=== PATIENT | female | born 1980 | race Caucasian/White ===

== ENCOUNTER 2019-03-12 15:35 | Observation (INO) ==
--- NOTE | 2019-03-12 16:18 | EKG Report ---
Test Performed on : 03/12/2019 4:09:36 PM Test Reason : rectal bleed Blood Pressure : / mmHG Vent. Rate : 064 BPM Atrial Rate : 064 BPM P-R Int : 126 ms QRS Dur : 096 ms QT Int : 438 ms P-R-T Axes : 035 031 041 degrees QTc Int : 451 ms Normal sinus rhythm. Low voltage QRS Borderline ECG When compared with ECG of 03-SEP-2017 07:08, No significant change was found Confirmed by Douglas Marquez MD ([id number]) on 03/12/2019 8:59:39 PM
[2019-03-12 17:00] LABS: HEMATOCRIT 37.4 % (37.0-47.0); HEMOGLOBIN 12.2 g/dL (12.0-16.0); MCH 32.9 PG (27-31); MCHC 32.6 g/dL (33-37); MCV 100.8 FL (81-99); MPV 10.3 FL (7.4-10.4); RBC 3.71 XMIL (4.2-5.4); RDW 12.5 % (11.5-14.5); WBC 4.98 X1000 (4.8-10.8)
[2019-03-12 17:06] LABS: INR 0.9; PROTIME 12.8 Seconds (11.0-16.0); PTT 28.7 Seconds (22.3-41.8)
[2019-03-12 17:21] LABS: AGAP 13; CHLORIDE 104 mmol/L (98-107); GLUCOSE 96 mg/dL (70-104); POTASSIUM 4.1 mmol/L (3.5-5.1); SODIUM 142 mmol/L (136-145); TCO2 25 mmol/L (25-35)
[2019-03-12 17:22] LABS: ALB/GLOB RATIO 2.2; ALBUMIN 4.3 g/dL (3.5-5.0); ALKALINE PHOSPHATASE 70 U/L (32-104); BUN 12 mg/dL (8-22); CALCIUM 8.6 mg/dL (8.8-10.2); COSMO 283; CREATININE 0.9 mg/dL (0.5-0.9); ESTIMATED GFR > 60; GOT 14 U/L (10-30); GPT 10 U/L (10-36); TOTAL BILIRUBIN 0.36 mg/dL (0.20-1.00); TOTAL PROTEIN 6.3 g/dL (6.3-8.3)
[2019-03-12 17:40] LABS: URINE SOURCE CLEAN CATCH
[2019-03-12 17:42] LABS: BILIRUBIN URINE NEGATIVE (NEGATIVE); BLOOD URINE NEGATIVE (NEGATIVE); COLOR YELLOW; GLUCOSE URINE NEGATIVE (NEGATIVE); KETONE URINE NEGATIVE (NEGATIVE); LEUKOCYTES URINE NEGATIVE (NEGATIVE); NITRITE URINE NEGATIVE (NEGATIVE); PROTEIN URINE TRACE mg/dL (NEGATIVE); SP GRAVITY URINE 1.026; TURBIDITY URINE CLEAR (CLEAR); UR EPITHELIAL CELLS <10 /HPF (<10); URINE BACTERIA 1+ /HPF; URINE RBC <10 /HPF (<10); URINE WBC <10 /HPF (<10); UROBILINOGEN URINE 4 mg/dL (NORMAL)
--- NOTE | 2019-03-12 17:49 | Diag Imaging Result Doc PS360 ---
EXAM: CHEST-2 VIEWS 03/12/2019 HISTORY: rectal bleed TECHNIQUE: PA and lateral chest COMMENT: There is what appears to be a nipple shadow on the right. The heart size and pulmonary vascularity are within normal limits. The lungs are clear. There are no previous studies. IMPRESSION: No acute disease. Electronically signed by Reddy Ortiz 03/12/2019 5:46 PM
[2019-03-12] MEDS: NS 1,000 ML IV SCH (18:02)
[2019-03-12] MEDS ORDERED: REGLAN PO ONE (18:11)
[2019-03-12] MEDS ORDERED: GOLYTELY PO ONE (18:11)
--- NOTE | 2019-03-12 18:19 | Diag Imaging Result Doc PS360 ---
EXAM: CT ABD/PELVIS W/IV CONT ONLY 03/12/2019 HISTORY: rectal bleed TECHNIQUE: This exam was performed using automated exposure control, adjustment of mA or kV according to patient size, and/or use of iterative reconstruction technique. COMMENT: There are no previous studies available for comparison. There are multiple pleural-based irregularities in the lower lobes bilaterally which may be due to fibrosis. The liver, spleen, adrenal glands, and pancreas are within normal limits. There is a calcified gallstone in the gallbladder measuring 7 to 8 mm in diameter. There is no evidence of para cholecystic fluid or wall thickening. The kidneys are without evidence of hydronephrosis or mass. There is a fairly large amount of stool present in the colon. There are some prominent mesenteric nodes. There is no evidence of small bowel obstruction. The aorta is not distended. Pelvis: The appendix is normal in appearance. There is some fluid throughout the small bowel. There is a left ovarian cyst measuring 2.4 cm. There has been previous hysterectomy. There is no evidence of diverticulitis. There are a few scattered diverticula in the descending and sigmoid colon. No significant free fluid is present. The urinary bladder is not distended. The regional skeleton is intact. IMPRESSION: Constipation. Cholelithiasis. Left ovarian cyst. Electronically signed by Reddy Ortiz 03/12/2019 6:17 PM
--- NOTE | 2019-03-12 21:24 | GASTROENTEROLOGY CONSULTATION ---
DATE: 03/12/2019 CONSULTING PHYSICIAN: Erik King Jr, MD REASON FOR CONSULTATION: Lower gastrointestinal bleed. HISTORY: This is a 39-year-old, white female with history of fibromyalgia and arthralgia. She has been in her usual state of health. This morning she had the urge to have a bowel movement and when she wiped she saw bright red blood per rectum and some clots in the commode. Since then she has had a few episodes of those, and she was brought to Dr. King's office where she was admitted to the hospital for further evaluation and treatment. Patient tells me that she has regular bowel movements usually up to 3 times a day. She denies any constipation and does not have to strain for bowel movements. She denies any rectal pain during or after bowel movements. She has had some left lower quadrant discomfort after her rectal bleeding; however, she denies any abdominal cramps. She denied indigestion, heartburn or reflux symptoms. Has not had any melena. She denies dysphagia or odynophagia. Her appetite is good. She is eating well. She has not lost any weight. She denies using [id number] NSAID. She has not had any fever or chills, has not had any nausea or vomiting. Denies any headache, dizziness, double vision. Denies any earache, ear discharge, ringing in the ear. Denies chest pain, shortness of breath or palpitations. Has not had any cough, sputum or hemoptysis. She denies dysuria, polyuria or hematuria. PAST MEDICAL HISTORY: Significant for fibromyalgia. PAST SURGICAL HISTORY: She has had 3 sections and total hysterectomy. MEDICATIONS: Prior to hospitalization, she has been on Cymbalta, and she takes Celebrex 200 mg p.o. b.i.d. Also uses Flexeril, Lasix, Keppra, magnesium and potassium chloride. ALLERGIES: She has some untoward reaction to pain patch. FAMILY HISTORY: Noncontributory. REVIEW OF SYSTEMS: As per HPI as above. SOCIAL HISTORY: She is and lives with her . She is a homemaker. She does not smoke. Does not drink. Does not do illicit drugs. PHYSICAL EXAMINATION: General: This is a very pleasant white female. She is lying in bed. She is conscious, alert, appears to be in no distress. Vitals: Temperature 98.8 degrees, pulse 80 per minute, breathing 16, blood pressure 108/78. Head: Atraumatic, normocephalic. Eyes: Conjunctivae are normal. Sclerae are anicteric. Nose: Nares are patent. No discharge. Mouth: Buccal mucosa is moist. Throat is normal. Neck: Supple. No lymphadenopathy or thyromegaly. Chest: Bilaterally symmetrical moving with respirations. Breath sounds audible bilaterally. No rhonchi or crepitations could be heard. Cardiovascular: Heart sounds are audible. No murmur could be appreciated. Abdomen: Full, soft, mildly tender in left lower quadrant area but no rebound tenderness. No guarding noted. No mass or visceromegaly noted. Bowel sounds are audible. Extremities: No pedal edema, cyanosis, clubbing was noted. Central nervous system: Grossly intact. No sensory or motor deficit. LABORATORY DATA: Reviewed, which showed WBC of 4.98, hemoglobin 12.2, hematocrit 37.4, MCV 100.8, platelets were 204, PT 12.8, INR 0.90. PTT 28.7, sodium 142, potassium 4.1, chloride 104, bicarb 25, BUN is 12, creatinine 0.9. LFTs are normal. Urinalysis is negative. CT scan of the abdomen shows constipation otherwise normal. IMPRESSION: This is a 39-year-old, white female who has presented with bright red blood per rectum with clots. She has been on Celebrex but does not take any other NSAID. She never had these episodes before, and she has never had a colonoscopy and does not have a family history of colorectal cancer; however, because of presentation, she needs to be evaluated. There is question of possible colitis resulting in her bleeding; however, her white count is normal. Other possibility is neoplastic lesion that needs to be ruled out. She needs a colonoscopy for diagnostic purposes. She will be scheduled for colonoscopy tomorrow. In the meantime, we will start her on clear liquid diet. Dr. King had done her rectal exam at the office and did not see any evidence of external hemorrhoids. I have discussed the case findings and plans with the patient. She understands and all her pertinent questions answered. cc: MD Erik Richard Jr, MD
[2019-03-12 22:25] LABS: HEMATOCRIT 37.9 % (37.0-47.0); HEMOGLOBIN 12.3 g/dL (12.0-16.0)
[2019-03-13] MEDS: NS 1,000 ML IV SCH ×2 (02:27→10:46)
[2019-03-13 03:29] LABS: HEMATOCRIT 36.4 % (37.0-47.0); HEMOGLOBIN 11.9 g/dL (12.0-16.0)
--- NOTE | 2019-03-13 08:38 | GASTROENTEROLOGY PROGRESS NOTE ---
DATE: 03/13/2019 SUBJECTIVE: Ms. Villavicencio was admitted yesterday with a lower GI bleed. So far, she has done well since admission. She is scheduled for colonoscopy today. LABORATORY DATA: Hemoglobin had dropped from 12.3 to 11.9, hematocrit from 37.9 to 36.4. PLAN: Overall, she is feeling better. She will be scheduled for colonoscopy this afternoon. cc: MD Erik Richard Jr, MD
--- NOTE | 2019-03-13 09:17 | PROGRESS NOTE ---
DATE: 03/13/2019 SUBJECTIVE: The patient says she feels a little bit better. She is not hurting as much in the left lower quadrant. Hemoglobin dropped from 12.3 down to 11.9. White count is normal. Rest of lab work is essentially normal. OBJECTIVE: Blood pressure is 108/75, respirations 18, pulse 71, temperature 98.8 degrees Fahrenheit. HEENT: She is normocephalic. EOMs intact. PERRLA. Throat clear. Lungs: Clear to auscultation and percussion without rhonchi, rales, or wheezes. Heart: Regular rate and rhythm without murmurs, gallops, or friction rubs. Abdomen: Soft. Active bowel sounds. No organomegaly or tenderness. Neurologic: Examination intact grossly. CT scan of the abdomen showed constipation, cholelithiasis, and a left ovarian cyst measuring 2.4 cm. She did have a few diverticula but no signs of diverticulitis. ASSESSMENT: 1. Lower gastrointestinal bleed. 2. Left lower quadrant abdominal pain. Could be from constipation, could be from the ovarian cyst, or could be from something going on in the colon. 3. Also incidental cholelithiasis. 4. The patient also has fibromyalgia. 5. Chronic pain syndrome. PLAN: For colonoscopy later today. cc: Erik King Jr, MD
[2019-03-13 09:51] LABS: HEMATOCRIT 36.2 % (37.0-47.0); HEMOGLOBIN 11.7 g/dL (12.0-16.0)
[2019-03-13] MEDS ORDERED: FENTANYL ONE (12:27)
[2019-03-13] MEDS ORDERED: DIPRIVAN 1% ONE ×3 (12:27→13:15)
[2019-03-13] MEDS ORDERED: XYLOCAINE-MPF 2% ONE (12:30)
--- NOTE | 2019-03-13 13:28 | ENDOSCOPY OPERATIVE NOTE ---
[facility] ENDOSCOPY OPERATIVE NOTE , PATIENT: Dora Villavicencio ADM DATE: 03/13/2019 MR #: [id number] : 1980 COLONOSCOPY PROCEDURE REPORT PROCEDURE DATE: 03/13/2019 SURGEON: Aroldo Chadwick MD STATUS: inpatient FIRE ALARM OPERATOR: Kika Jacobson and Gardenia Burt PREOPERATIVE DIAGNOSIS: The patient is a 39 yr old female here for a colonoscopy due to hematochezia . PROCEDURE PERFORMED: Colonoscopy with snare polypectomy MEDICATIONS: Per Anesthesia PREP TYPE: GoLytely
[2019-03-13] MEDS ORDERED: GOLYTELY PO ONE (14:00)
[2019-03-13 17:03] VITALS: BP 105/63
[2019-03-13] MEDS ORDERED: PERIDEX MT SCH (21:00)
--- NOTE | 2019-03-14 14:27 | DISCHARGE SUMMARY ---
ADMISSION DATE: 03/12/2019 DISCHARGE DATE: 03/13/2019 FINAL DIAGNOSES: 1. Hematochezia. 2. Colon polyps. SECONDARY DIAGNOSES: 1. Chronic pain syndrome. 2. Fibromyalgia. CONSULTATION: Dr. Chadwick [facility]. HISTORY OF PRESENT ILLNESS: The patient came in my office, and stated that she had just started that morning having rectal bleeding. She says it was like having a menstrual flow. I did Hemoccult on her stool and that was positive for bright red blood. With the signs that she had had so much bleeding, and we did not know the cause, and there were no obvious hemorrhoids. She put her in the hospital. We watched her hemoglobin and it has remained stable. She has not had any other significant bleeding. She had a colonoscopy earlier today by Dr. Chadwick, and he found three small flat polyps at the splenic flexure and biopsied those, and did a polypectomy. Then, he found a sessile polyp in the rectum probably the source of the bleeding, and he removed it and cauterized it. She has had no bleeding since then. He wants her off of Celebrex for now, and on Metamucil. She will take 2 capsules daily for a couple of days and go and then 2 capsules twice a day for couple of days, and get up to 2 capsules 3 times a day. She will see him back in 2 weeks. Then, I think in 2 months he wanted to see her as well. I will see her back in my office in 1 week with a CBC. PHYSICAL EXAMINATION: Vital Signs: Blood pressure 99/74, respirations 20, pulse 56, temperature 98 degrees Fahrenheit. Blood pressure slightly earlier was 111/74. HEENT: She is normocephalic. EOMS intact. PERRLA. Throat clear. Lungs: Clear to auscultation and percussion without rhonchi, rales, or wheezes. Heart: Regular rate and rhythm without murmurs, gallops, or friction rubs. Abdomen: Soft. Active bowel sounds. No organomegaly or tenderness. Neurologic: Exam is intact grossly. Rectal: Rectal exam done had shown blood in stool on admission, but is having no bleeding at this time. We will discharge and see as above. cc: Erik King Jr, MD
== END 2019-03-13 18:11 | disposition home or self-care (01) ==
LOC: DIRADM → 4N 15:35
PROVIDERS: ADMIT Emergency Medicine; ATTEND Emergency Medicine
CPT/HCPCS: 71020; 71046; 74177; 80053; 80177; 80299; 81001; 82491; 85014; 85018; 85027; 85610; 85730; 93005; 93010; 94761; 94799; A9270; G0378; G0379; J3010; J7030; Q9967